=== PATIENT | male | born 1995 | race Caucasian/White ===

== ENCOUNTER 2018-11-03 23:26 | Emergency (ER) | payer SELFPAY ==
[2018-11-03 23:31] VITALS: BP 119/87
--- NOTE | 2018-11-04 00:02 | EDPHY ---
General Time Seen by Provider: 11/03/18 23:48 Narrative: CLINICAL IMPRESSION: Dental trauma ASSESSMENT/PLAN: 23-year-old male presents to the emergency department with dental pain after he was hit in the face playing full contact hockey. Patient reports the hockey stick went under his mask impacting his right front tooth. Patient has no evidence of dental avulsion, midface instability, LeFort fracture, mandibular fracture, orbital blowout fracture, or dental fracture. No intraoral laceration. He has superficial laceration to the upper lip not requiring sutures. No other injuries. Tetanus up-to-date. Patient was referred to dental aid, advised to maintain a liquid or soft food diet and rinse his mouth out after eating. Warning signs for return to ED sooner outlined and discharge. DIFFERENTIAL DX: Differential includes but not limited to dental avulsion, dental fracture, LeFort fracture, orbital blowout fracture CHIEF COMPLAINT: Dental pain HPI: 23-year-old male presents to the emergency department with right frontal tooth pain after he was hit by a hockey stick playing full contact hockey tonight. Patient reports the stick went beneath his mask impacting his tooth. He has a wire brace behind his teeth that was placed after braces and reports part of the wire is broken. He states the tooth was slightly pushed back and he pushed it for but it was never out of its socket. He reports no malocclusion, bloody nose, cheek pain. He does have a slightly bruised black eye with no reported vision changes, double vision, or difficulty moving the eye. He denies headache and dizziness. PAST MEDICAL HISTORY: None reported See triage summary and nurse notes for addition applicable history Pertinent Past Surgical History: None reported Family History: Noncontributory Social History: [employer] student, otherwise healthy, vaccines up- to-date REVIEW OF SYSTEMS: A full 10 point review of systems was negative except for those mentioned in HPI. PHYSICAL EXAM: General Appearance: Alert, oriented, appropriate, cooperative, NAD, well hydrated, non-toxic appearing, VSS, no hypoxia. HEENT: TMs are clear bilaterally no perforation or FB, no injection, no evidence of serous or mucopurulent otitis. No hemotympanum or Mckinnon sign Oropharynx clear is no erythema or exudates, no tonsillar hypertrophy or asymmetry. Superficial lacerations to upper lip not requiring sutures. Right upper tooth in socket, slightly loose but not avulsed and no obvious fracture. No intraoral laceration. Wire glued to to the posterior aspect of the front 6 teeth, broken off the right canine. No orbital rim step-off, nasal bone deformity, midface instability or suggestion of LeFort fracture Eyes: PERRLA, no acute vision change, nystagmus, swelling, discharge, pain or photosensitivity. Conjunctiva pink, no pallor or injection Neck: Supple, nontender, no lymphadenopathy, no midline pain, FROM, no meningismus. Skin: Warm, dry, no rashes, no nodules on palpation. MEDICAL DECISION MAKING: Patient was seen independently. Secondary supervising physician at time of evaluation was: Dr. Bal. Diagnosis: Dental trauma . New, requires workup Summary: See Assessment and Plan for summary of ED visit Patient Progress: Stable for discharge. - History Smoking Status: Never smoked - Objective Vital Signs: Initial Vital Signs Temperature (C) 37.2 C 11/03/18 23:28 Heart Rate 84 11/03/18 23:28 Respiratory Rate 16 11/03/18 23:28 Blood Pressure 119/87 H 11/03/18 23:28 O2 Sat (%) 99 11/03/18 23:28 O2 Delivery Mode Room Air Allergies/Adverse Reactions: No Known Allergies Allergy (Verified 11/03/18 23:31) Home Medications: Medication Instructions Recorded NK [No Known Home Meds] 11/03/18 Departure - Departure Disposition: Home, Routine, Self-Care Clinical Impression: Dental trauma Qualifiers: Encounter type: initial encounter Qualified Code(s): S09.93XA - Unspecified injury of face, initial encounter Condition: Good Instructions: Acute Dental Trauma (ED) Additional Instructions: DISCHARGE INSTRUCTIONS FROM YOUR DOCTOR Thank you for visiting our emergency department today. You were treated by a physician transport assistant today and your case was reviewed with our ED Attending physician. Please keep in mind that discharge from the emergency department does not mean that there is nothing wrong - it simply means that we have not identified an emergency condition that requires further evaluation or treatment in the hospital. You should always plan to follow up with primary care for re- evaluation of your condition in the next 2-3 days. If you have been referred to a specialist, please call as soon as possible (today or tomorrow) to schedule your follow up appointment at the appropriate time. PLEASE FOLLOW-UP WITH A DENTIST TOMORROW. YOU CAN EITHER CALL A DENTIST IN THE AREA OR YOU CAN CONTACT DENTAL AID WHO CAN BE REACHED AT [phone]. ICE YOUR LIP, USE TYLENOL OR IBUPROFEN FOR PAIN. RETURN TO THE EMERGENCY DEPARTMENT FOR FACIAL PAIN, INABILITY TO EAT OR CLOSURE MOUTH, VISION CHANGES, SEVERE HEADACHES, ALTERED MENTAL STATUS, OR ANY OTHER CONCERN People present with illnesses and injuries in different ways, and it is always possible that we have missed something. You may always return for re-evaluation if symptoms worsen or if they are not improving or if you develop new/different symptoms. Again, thank you for choosing our emergency department. We hope that you feel better. Referrals: NONE *PRIMARY CARE P,. [Primary Care Provider] - As per Instructions [facility],. [Clinic] - 1-2 days without fail
== END 2018-11-04 00:16 | disposition home or self-care (01) ==
DX: S02.5XXA Fracture of tooth (traumatic), initial encounter for closed fracture (principal); S01.511A Laceration without foreign body of lip, initial encounter; W21.210A Struck by ice hockey stick, initial encounter; Y92.9 Unspecified place or not applicable; Y99.9 Unspecified external cause status; Y93.22 Activity, ice hockey